=== PATIENT | male | born 1985 | race Caucasian/White ===

== ENCOUNTER 2023-07-20 10:15 | Emergency (ER) | payer BC, SELFPAY ==
[2023-07-20 10:22] VITALS: BP 114/73; PULSE 61; RESP 16; TEMP 36.7; O2SAT 98; BMI 27.1
--- NOTE | 2023-07-20 10:40 | ED.GIBLEED1 ---
HPI - GI Bleed General Chief complaint: GI Bleed Stated complaint: BLOOD IN STOOL Time Seen by Provider: 07/20/23 10:34 Source: patient and friend Mode of arrival: walk-in Limitations: no limitations History of Present Illness HPI Narrative: 38-year-old male presents for blood in his stool. Every time he wipes after a bowel movement for the last year he is seeing bright red blood. He has not had this looked at. No current abdominal pain and he has never had a colonoscopy. He has not had a fever. Related Data Allergies Allergy/AdvReac Type Severity Reaction Status Date / Time No Known Drug Allergies Allergy Verified 07/20/23 10:28 Review of Systems ROS Narrative A ten point review of systems is negative except as noted above. PFSH PFSH Social History Smoking status: Current every day smoker Exam Narrative Exam Narrative: Nurses note and vital signs reviewed and patient is not hypoxic. General: The patient appears well and in no apparent distress. Patient is resting comfortably on cart. Skin: Warm, dry, no pallor noted. There is no rash noted. Head: Normocephalic, atraumatic Eye: Normal conjunctiva, no drainage Ears, Nose, Mouth, and Throat: oral mucosa is moist. Nares patent. Cardiovascular: Regular Rate and Rhythm Respiratory: Patient is in no distress, no accessory muscle use, lungs are clear to auscultation, no wheezing, rales or rhonchi Back: non-tender GI: no tenderness to palpation, no masses appreciated. No rebound, guarding, or rigidity noted. No external hemorrhoids found. Musculoskeletal: The patient has no evidence of calf tenderness, no pitting edema, symmetrical pulses noted bilaterally Neurological: A&O, normal speech Psychiatric: Cooperative Constitutional Vital Signs, click to edit/add: Last Vital Signs Temp 98.1 F 07/20/23 10:22 Pulse 61 07/20/23 10:22 Resp 16 07/20/23 10:22 BP 114/73 07/20/23 10:22 Pulse Ox 98 07/20/23 10:22 O2 Del Method Room Air 07/20/23 10:22 Course Vital Signs Vital signs: Vital Signs Temperature 98.1 F 07/20/23 10:22 Pulse Rate 61 07/20/23 10:22 Respiratory Rate 16 07/20/23 10:22 Blood Pressure 114/73 07/20/23 10:22 Pulse Oximetry 98 07/20/23 10:22 Oxygen Delivery Method Room Air 07/20/23 10:22 Temperature 98.1 F 07/20/23 10:22 Pulse Rate 61 07/20/23 10:22 Respiratory Rate 16 07/20/23 10:22 Blood Pressure 114/73 07/20/23 10:22 Pulse Oximetry 98 07/20/23 10:22 Oxygen Delivery Method Room Air 07/20/23 10:22 MDM - GI Bleed MDM Narrative Medical decision making narrative: Blood work is nonspecific, hemoglobin is 13.6. He is being referred to surgery for follow-up. The possibility of internal hemorrhoid was discussed with the patient. Differential Diagnosis Differential diagnosis: Likely hemorrhoids and Lower gastrointestinal hemorrhage Lab Data Attestation: I reviewed the patient's lab results. Labs: Lab Results 07/20/23 Range/Units 10:47 WBC 7.7 (4.0-11.0) 10^3/uL RBC 4.47 L (4.70-6.10) 10^6/uL Hgb 13.6 L (14.0-18.0) g/dL Hct 39.6 L (42.0-54.0) % MCV 88.6 (80.0-94.0) fL MCH 30.4 (25.9-34.0) pg MCHC 34.3 (29.9-35.2) g/dL RDW 12.1 (11.0-15.0) % Plt Count 208 (150-450) 10^3/uL MPV 9.2 L (9.5-13.5) fL Neut % (Auto) 55.0 (43.0-75.0) % Lymph % (Auto) 33.0 (20.5-60.0) % [place] % (Auto) 9.1 (1.7-12.0) % Eos % (Auto) 2.1 (0.9-7.0) % Baso % (Auto) 0.7 (0.2-2.0) % Neut # (Auto) 4.2 (1.4-6.5) 10^3/uL Lymph # (Auto) 2.5 (1.2-3.8) 10^3/uL [place] # (Auto) 0.7 (0.3-0.8) 10^3/uL Eos # (Auto) 0.2 (0.0-0.7) 10^3/uL Baso # (Auto) 0.1 (0.0-0.1) 10^3/uL Abs Immat Gran (auto) 0.01 (0.00-0.03) 10^3/uL Imm/Tot Granulo (auto) 0.1 (0.0-0.5) % Sodium 142 (136-145) mmol/L Potassium 3.7 (3.5-5.1) mmol/L Chloride 105 (98-107) mmol/L Carbon Dioxide 29.0 (21.0-32.0) mmol/L Anion Gap 11.7 BUN 16.0 (7.0-18.0) mg/dL Creatinine 0.89 (0.70-1.30) mg/dL Est GFR ( Amer) >60 (>=60) Est GFR (Non-Af Amer) >60 (>=60) BUN/Creatinine Ratio 18.0 Glucose 119 H (74-106) mg/dL Calcium 8.4 L (8.5-10.1) mg/dL Discharge Plan Discharge Chief Complaint: GI Bleed Clinical Impression: Lower gastrointestinal hemorrhage Patient Disposition: Home, Self-Care Time of Disposition Decision: 11:27 Condition: Good Mode of Transportation: Private Vehicle Instructions: Gastrointestinal Bleeding (ED), Rectal Bleeding (ED) Additional Instructions: Follow-up with Dr. Faust Stand Alone Forms: Portal Instructions Referrals: Physician,Non-Staff, MD [Primary Care Provider] - 1 week
[2023-07-20 10:54] LABS: Basophils Absolute Auto 0.1 10^3/uL (0.0-0.1); Basophils Percent Auto 0.7 % (0.2-2.0); Eosinophils Absolute Auto 0.2 10^3/uL (0.0-0.7); Eosinophils Percent Auto 2.1 % (0.9-7.0); Hematocrit 39.6 % (42.0-54.0); Hemoglobin 13.6 g/dL (14.0-18.0); Immature Granulocytes Abs Auto 0.01 10^3/uL (0.00-0.03); Immature Granulocytes Pct Auto 0.1 % (0.0-0.5); Lymphocytes Absolute Auto 2.5 10^3/uL (1.2-3.8); Mean Corpuscular HGB Conc 34.3 g/dL (29.9-35.2); Mean Corpuscular Hemoglobin 30.4 pg (25.9-34.0); Mean Corpuscular Volume 88.6 fL (80.0-94.0); Mean Platelet Volume 9.2 fL (9.5-13.5); Monocytes Absolute Auto 0.7 10^3/uL (0.3-0.8); Monocytes Percent Auto 9.1 % (1.7-12.0); Neutrophils Absolute Auto 4.2 10^3/uL (1.4-6.5); Platelet Count 208 10^3/uL (150-450); Red Blood Count 4.47 10^6/uL (4.70-6.10); Red Cell Distribution Width 12.1 % (11.0-15.0); White Blood Count 7.7 10^3/uL (4.0-11.0)
[2023-07-20 11:00] LABS: Anion Gap 11.7; Calcium 8.4 mg/dL (8.5-10.1); Chloride 105 mmol/L (98-107); Estimated GFR (African America >60 (>=60); Estimated GFR (Non-African Ame >60 (>=60); Glucose 119 mg/dL (74-106); Potassium 3.7 mmol/L (3.5-5.1); Sodium 142 mmol/L (136-145)
== END 2023-07-20 11:44 | disposition home or self-care (01) ==
PROVIDERS: Emergency Provider Emergency Medicine
DX: K92.2 Gastrointestinal hemorrhage, unspecified (principal); F17.210 Nicotine dependence, cigarettes, uncomplicated
CPT/HCPCS: 36415; 80048; 85025; 99283